=== PATIENT | male | born 1995 | race African-American/Black ===

== ENCOUNTER → 2017-07-10 | Outpatient (CLI) | payer OTHER ==
--- NOTE | 2017-07-10 09:45 | RADIOLOGY IMAGING REPORT ---
FACILITY: [facility] PATIENT NAME: Nilay Fields : 1995 MR: [id number] V: [id number] EXAM DATE: ORDERING PHYSICIAN: AMBERLY LARA TECHNOLOGIST: Location: [facility] [place] Patient: Nilay Fields : 1995 Visit/Account:[id number] Date of Sevice: 07/10/2017 EXAMINATION: CT Lumbar spine without intravenous contrast HISTORY: Low back pain. COMPARISON: None. TECHNIQUE: Axial images were obtained through the lumbar spine without IV contrast administration. C oronal and sagittal reformatted images were obtained from the axial source data. One of the following dose optimization techniques was utilized in the performance of this exam: Autom ated exposure control; adjustment of the mA and/or kV according to the patient's size; or use of an i terative reconstruction technique. Specific details can be referenced in the facility's radiology C T exam operational policy. FINDINGS: Alignment: Normal. Vertebral bodies: Negative. Posterior elements: Negative. Hardware: None. Disc Spaces: Negative. Soft tissues: Negative. Visualized retroperitoneal / abdominal structures: The right kidney is not seen. IMPRESSION: 1. The right kidney is not seen and may be absent or severely atrophied. 2. Otherwise unremarkable lumbar spine CT. Report Dictated By: Darwin Rose MD at 07/10/2017 9:30 AM Report E-Signed By: Darwin Rose MD at 07/10/2017 9:40 AM WSN:[id number]
== END ==
LOC: CT 08:50
PROVIDERS: ATTEND Orthopaedic Surgery
DX: M54.5 Low back pain (principal)
CPT/HCPCS: 72131